=== PATIENT | female | born 1955 | race Caucasian/White ===

== ENCOUNTER → 2016-09-26 | Outpatient (CLI) | payer BC ==
[2016-09-26 14:30] VITALS: BP 164/91; PULSE 66; TEMP 98.6; BMI 32.2
--- NOTE | 2016-09-26 16:37 | P.HPBAR ---
Bariatric H&P - History & Physicial H&P Date: 09/26/16 History & Physicial: Visit/CC: Patient initial contact: Initial weight: Initial weight in pounds: Height: 5 ft 4.5 in Initial BMI: Last weight: Current weight: 86.455 kg Current weight in pounds: 190.60 Current BMI: 32.2 [place] body weight (based on NIH guidelines): 55.565 kg Excess body weight loss: The patient is a 61 year-old F who presents for Bariatric Assessment. The patient presents for lab band follow. She is requesting a fill of her LAP- BAND. She currently feels hungry. Past Medical History Past Medical History: GERD/Reflux, Hyperlipidemia, Hypertension, Thyroid Disorder History of Any Multi-Drug Resistant Organisms: None Reported Past Surgical History: Adenoidectomy, Appendectomy, Bariatric Surgery, Orthopedic Surgery, Tonsillectomy Additional Past Surgical History / Comment(s): lap band x2, appendectomy 2013; Right rotator cuff, bilateral thumbs, left ankle has 9 screws and a 6inch plate , left oopherectomy Past Anesthesia/Blood Transfusion Reactions: No Reported Reaction Past Psychological History: Anxiety, Depression Smoking Status: Former smoker Past Alcohol Use History: None Reported Additional Past Alcohol Use History / Comment(s): quit smoking in 1979 Past Drug Use History: None Reported - Past Family History Mother Family Medical History: Diabetes Mellitus Father Family Medical History: No Reported History Surgical - Exam Vital Signs Temp Pulse BP 98.6 F 66 164/91 09/26/16 14:20 09/26/16 14:20 09/26/16 14:20 - General well developed, no distress - Eyes PERRL - Abdomen Abdomen: soft, non tender Bariatric Assessment & Plan Plan: The patient LAP-BAND was adjusted. 0.5 mL was added to her LAP-BAND. She currently has 6.5 mL in the band. Patient will follow-up as needed. She states that she is attempting to find aftercare in the [place] area being that is closer to her home. Bariatric Checklist Checklist: Plan: Checklist: EGD: 1. Hiatal hernia: 2. H. Pylori: HgbA1c: Vitamin D: Smoking: Former smoker Primary care physician referral: Dr. Akanksha Gregory Psychiatry clearance: Cardiology clearance: Sleep study: Diet journal: VTE risk score: VTE risk level: Rehab needs at discharge:
== END | disposition home or self-care (01) ==
LOC: BARWHC3 13:13
PROVIDERS: ATTEND Surgery
DX: Z48.815 Encounter for surgical aftercare following surgery on the digestive system (principal); Z68.32 Body mass index [BMI] 32.0-32.9, adult; Z87.891 Personal history of nicotine dependence
CPT/HCPCS: 99212

== ENCOUNTER → 2022-08-08 | Outpatient (CLI) | payer MEDICARE ==
[2022-08-08 14:24] VITALS: BP 145/77; PULSE 69; TEMP 98.7; BMI 30.9
--- NOTE | 2022-08-08 14:39 | P.HPBAR ---
Bariatric H&P - History & Physicial H&P Date: 08/08/22 History & Physicial: Visit/CC: lap band Patient initial contact: Initial weight: Initial weight in pounds: Height: 5 ft 4.5 in Initial BMI: Last weight: Current weight: 83.007 kg Current weight in pounds: 183.00 Current BMI: 30.9 [place] body weight (based on NIH guidelines): 55.565 kg Excess body weight loss: The patient is a 67 year-old F who presents for Bariatric Assessment. She presents today for LAP-BAND follow-up. She's not been seen in over 6 years. Patient has a esophagram from an outside institution which shows significant dysphagia was retained food in the stomach esophagus. Patient has had trouble eating fill last several years. Past Medical History Past Medical History: GERD/Reflux, Hyperlipidemia, Hypertension, Thyroid Disorder History of Any Multi-Drug Resistant Organisms: None Reported Past Surgical History: Adenoidectomy, Appendectomy, Bariatric Surgery, Orthopedic Surgery, Tonsillectomy Additional Past Surgical History / Comment(s): lap band x2, appendectomy 2013; Right rotator cuff, bilateral thumbs, left ankle has 9 screws and a 6inch plate, left oopherectomy Past Anesthesia/Blood Transfusion Reactions: No Reported Reaction Past Psychological History: Anxiety, Depression Smoking Status: Former smoker Past Alcohol Use History: None Reported Additional Past Alcohol Use History / Comment(s): quit smoking in 1979 Past Drug Use History: None Reported - Past Family History Mother Family Medical History: Diabetes Mellitus Father Family Medical History: No Reported History Surgical - Exam Vital Signs Temp Pulse BP 98.7 F 69 145/77 08/08/22 14:18 08/08/22 14:18 08/08/22 14:18 - General well developed, well nourished, no distress - Eyes PERRL - ENT normal pinna, normal nares, normal mucosa - Neck no masses - Respiratory normal expansion - Cardiovascular Rhythm: regular - Abdomen Abdomen: soft, non tender Bariatric Assessment & Plan Plan: Patient's LAP-BAND was empty. 6.5 mL was removed the band. She was ill drink water without difficulty. Patient be scheduled for EGD prior to her LAP-BAND being refill. Bariatric Checklist Checklist: Plan: Checklist: EGD: 1. Hiatal hernia: 2. H. Pylori: HgbA1c: Vitamin D: Smoking: Former smoker Primary care physician referral: Dr. Akanksha Gregory Psychiatry clearance: Cardiology clearance: Sleep study: Diet journal: VTE risk score: VTE risk level: Rehab needs at discharge:
== END ==
LOC: BARWHC3 13:49
PROVIDERS: ATTEND Surgery
DX: Z48.815 Encounter for surgical aftercare following surgery on the digestive system (principal); Z98.84 Bariatric surgery status; K21.9 Gastro-esophageal reflux disease without esophagitis; E78.5 Hyperlipidemia, unspecified; I10 Essential (primary) hypertension; E07.9 Disorder of thyroid, unspecified; Z87.891 Personal history of nicotine dependence; Z79.890 Hormone replacement therapy; Z79.899 Other long term (current) drug therapy
CPT/HCPCS: 99212

== ENCOUNTER → 2022-09-01 | Day surgery (SDC) | payer MEDICARE ==
[2022-08-30 17:31] VITALS: BMI 31.6
[~2022-09-01] MED LIST: LACTATED RINGERS 1,000 ML IV ONE; LACTATED RINGERS 1,000 ML IV SCH; LIDOCAINE 1% (10MG/ML) FOR IV START INTRADERMA PRN; LIDOCAINE 2% INJ 20 MG/ML (2 ML VIAL) ONE; ONDANSETRON 4 MG/2 ML VIAL IVP PRN; PROPOFOL 10 MG/ML 20 ML VIAL IV ONE
[2022-09-01 09:43] VITALS: TEMP 97
--- NOTE | 2022-09-01 09:56 | P.GSHP ---
History of Present Illness H&P Date: 09/01/22 Chief Complaint: GERD Is a 67-year-old female who presents today for EGD. Patient history of GERD. Past Medical History Past Medical History: GERD/Reflux, Hyperlipidemia, Hypertension, Thyroid Disorder History of Any Multi-Drug Resistant Organisms: None Reported Past Surgical History: Adenoidectomy, Appendectomy, Bariatric Surgery, Orthopedic Surgery, Tonsillectomy Additional Past Surgical History / Comment(s): lap band x2, appendectomy 2013; Right rotator cuff, bilateral thumbs, left ankle has 9 screws and a 6inch plate, left oophorectomy Past Anesthesia/Blood Transfusion Reactions: No Reported Reaction Past Psychological History: Anxiety, Depression Smoking Status: Former smoker Past Alcohol Use History: None Reported Additional Past Alcohol Use History / Comment(s): quit smoking in 1979 Past Drug Use History: None Reported - Past Family History Mother Family Medical History: Diabetes Mellitus Father Family Medical History: No Reported History Medications and Allergies Home Medications Medication Instructions Recorded Confirmed Type Levothyroxine Sodium [Synthroid] 200 mcg PO DAILY 06/06/16 08/30/22 History Sertraline HCl [Zoloft] 200 mg PO DAILY 06/06/16 08/30/22 History Atorvastatin [Lipitor] 40 mg PO DAILY 08/08/22 08/30/22 History carvediloL [Coreg] 6.25 mg PO DAILY 08/08/22 08/30/22 History hydrOXYzine pamoate [hydrOXYzine 2 tab PO DAILY PRN 08/30/22 08/30/22 History PAMOATE] Allergies Allergy/AdvReac Type Severity Reaction Status Date / Time No Known Allergies Allergy Verified 08/30/22 17:20 Surgical - Exam Vital Signs Temp Pulse Resp BP Pulse Ox 97 F L 70 18 160/87 96 09/01/22 09:41 09/01/22 09:41 09/01/22 09:41 09/01/22 09:41 09/01/22 09:41 - General well developed, well nourished, no distress - Eyes PERRL - ENT normal pinna - Neck no masses - Respiratory normal expansion - Cardiovascular Rhythm: regular - Abdomen Abdomen: soft, non tender Assessment and Plan Assessment: GERD. We'll perform EGD.
--- NOTE | 2022-09-01 10:05 | P.OP ---
Date of Procedure: 09/01/22 Preoperative Diagnosis: GERD Indigestion Postoperative Diagnosis: Antral gastritis Procedure(s) Performed: EGD Anesthesia: MAC Surgeon: Jag Joshi Pathology: other (Antrum) Condition: stable Disposition: PACU Description of Procedure: Patient's placed on the endoscopy table in the lateral position. She received IV sedation. The gastro-/oropharynx passed in the esophagus and stomach. Scope placement pylorus. The first and second portion of the duodenum appeared normal. Scope was then brought back the antrum and this was mildly inflamed. A biopsies performed. Scope was then retroflexed and remainder of the stomach appeared normal. The patient a previous [employer] device. There was no sig nificant hiatal hernia seen. The GE junction was at 40 cm. The distal esophagus appeared normal. The proximal esophagus appeared normal. Scope withdrawn for patient.
[2022-09-01 10:28] VITALS: PULSE 68; RESP 14
[2022-09-01 10:36] VITALS: BP 151/89
--- NOTE | 2022-09-01 14:23 | NM ---
Nuclear medicine hepatobiliary scan. HISTORY: Pain. DOSAGE: The patient received 8 0z Ensure plus and 4.3 mCi of Technetium 99m Choletec. FINDINGS: There is normal hepatic extraction. The gallbladder is seen by 20 minutes. There is bilia ry to bowel clearance by 20 minutes. Ejection fraction is 80%. IMPRESSION: 1. No evidence of cholecystitis. 2. Ejection fraction of 88% which can occasionally be associated with hyperdynamic gallbladder correl ate clinically.
== END ==
LOC: ORWHC2ENDO 09:00
PROVIDERS: ATTEND Surgery
DX: K29.50 Unspecified chronic gastritis without bleeding (principal); K31.A19 Gastric intestinal metaplasia without dysplasia, unspecified site; E78.5 Hyperlipidemia, unspecified; E03.9 Hypothyroidism, unspecified; I10 Essential (primary) hypertension; K21.9 Gastro-esophageal reflux disease without esophagitis; F32.A Depression, unspecified; F41.9 Anxiety disorder, unspecified; Z87.891 Personal history of nicotine dependence; Z79.890 Hormone replacement therapy; Z79.899 Other long term (current) drug therapy; Z83.3 Family history of diabetes mellitus; Z90.49 Acquired absence of other specified parts of digestive tract; Z90.722 Acquired absence of ovaries, bilateral
CPT/HCPCS: 88305; 78227; 43239; J2704; J2001

== ENCOUNTER → 2022-12-05 | Outpatient (CLI) | payer MEDICARE ==
[2022-12-05 15:11] VITALS: PULSE 70; TEMP 98.2; BMI 35.4
[2022-12-05 15:13] VITALS: BP 177/102
--- NOTE | 2022-12-05 15:44 | P.HPBAR ---
Bariatric H&P - History & Physicial H&P Date: 12/05/22 History & Physicial: Visit/CC: lap band adj Patient initial contact: Initial weight: Initial weight in pounds: Height: 5 ft 4.5 in Initial BMI: Last weight: Current weight: 95.254 kg Current weight in pounds: 210.00 Current BMI: 35.4 [place] body weight (based on NIH guidelines): 55.565 kg Excess body weight loss: The patient is a 67 year-old F who presents for Bariatric Assessment. Patient presents today for LAP-BAND follow-up. She's requesting a fill of her LAP- BAND.. Past Medical History Past Medical History: GERD/Reflux, Hyperlipidemia, Hypertension, Thyroid Disorder History of Any Multi-Drug Resistant Organisms: None Reported Past Surgical History: Adenoidectomy, Appendectomy, Bariatric Surgery, Orthopedic Surgery, Tonsillectomy Additional Past Surgical History / Comment(s): lap band x2, appendectomy 2013; Right rotator cuff, bilateral thumbs, left ankle has 9 screws and a 6inch plate, left oophorectomy Past Anesthesia/Blood Transfusion Reactions: No Reported Reaction Past Psychological History: Anxiety, Depression Smoking Status: Former smoker Past Alcohol Use History: None Reported Additional Past Alcohol Use History / Comment(s): quit smoking in 1979 Past Drug Use History: None Reported - Past Family History Mother Family Medical History: Diabetes Mellitus Father Family Medical History: No Reported History Surgical - Exam Vital Signs Temp Pulse BP 98.2 F 70 177/102 12/05/22 15:08 12/05/22 15:08 12/05/22 15:08 - General well developed, well nourished, no distress - Eyes PERRL - ENT normal pinna - Neck no masses - Respiratory normal expansion - Cardiovascular Rhythm: regular - Abdomen Abdomen: soft, non tender Bariatric Assessment & Plan Plan: Patient LAP-BAND was just. She had 2 mL added to the band. She currently is 4.5 mL in the band. She'll follow-up in 4 weeks. Bariatric Checklist Checklist: Plan: Checklist: EGD: 1. Hiatal hernia: 2. H. Pylori: HgbA1c: Vitamin D: Smoking: Former smoker Primary care physician referral: Dr. Akanksha Gregory Psychiatry clearance: Cardiology clearance: Sleep study: Diet journal: VTE risk score: VTE risk level: Rehab needs at discharge:
== END ==
LOC: BARWHC3 14:49
PROVIDERS: ATTEND Surgery
DX: E66.01 Morbid (severe) obesity due to excess calories (principal); Z68.35 Body mass index [BMI] 35.0-35.9, adult; Z46.51 Encounter for fitting and adjustment of gastric lap band; K21.9 Gastro-esophageal reflux disease without esophagitis; E78.5 Hyperlipidemia, unspecified; I10 Essential (primary) hypertension; Z87.891 Personal history of nicotine dependence
CPT/HCPCS: 99212

== ENCOUNTER → 2023-01-30 | Outpatient (CLI) | payer MEDICARE ==
[2023-01-30 15:13] VITALS: BMI 36.6
--- NOTE | 2023-02-27 08:42 | P.HPBAR ---
Bariatric H&P - History & Physicial H&P Date: 01/30/23 History & Physicial: Visit/CC: lap band follow up Patient initial contact: Initial weight: Initial weight in pounds: Height: 5 ft 4.5 in Initial BMI: Last weight: Current weight: 98.384 kg Current weight in pounds: 216.90 Current BMI: 36.6 Alpha body weight (based on NIH guidelines): 55.565 kg Excess body weight loss: The patient is a 67 year-old F who presents for Bariatric Assessment. Patient presents today for LAP-BAND adjustment. She states she is hungry. She currently wish to have a fill of her LAP-BAND. Past Medical History Past Medical History: GERD/Reflux, Hyperlipidemia, Hypertension, Thyroid Disorder History of Any Multi-Drug Resistant Organisms: None Reported Past Surgical History: Adenoidectomy, Appendectomy, Bariatric Surgery, Orthopedic Surgery, Tonsillectomy Additional Past Surgical History / Comment(s): lap band x2, appendectomy 2013; Right rotator cuff, bilateral thumbs, left ankle has 9 screws and a 6inch plate, left oophorectomy Past Anesthesia/Blood Transfusion Reactions: No Reported Reaction Smoking Status: Former smoker - Past Family History Mother Family Medical History: Diabetes Mellitus Father Family Medical History: No Reported History Surgical - Exam - General well developed, well nourished - Abdomen Abdomen: soft, non tender Bariatric Assessment & Plan Plan: Patient's LAP-BAND was adjusted. She had 1 mL added to the band. She currently has 5.5 mL in the band. She'll follow-up in 4 weeks. Bariatric Checklist Checklist: Plan: Checklist: EGD: 1. Hiatal hernia: 2. H. Pylori: HgbA1c: Vitamin D: Smoking: Former smoker Primary care physician referral: Dr. Akanksha Gregory Psychiatry clearance: Cardiology clearance: Sleep study: Diet journal: VTE risk score: VTE risk level: Rehab needs at discharge:
== END ==
LOC: BARWHC3 14:06
PROVIDERS: ATTEND Surgery
DX: E66.01 Morbid (severe) obesity due to excess calories (principal); K21.9 Gastro-esophageal reflux disease without esophagitis; E78.5 Hyperlipidemia, unspecified; I10 Essential (primary) hypertension; E07.9 Disorder of thyroid, unspecified; Z68.36 Body mass index [BMI] 36.0-36.9, adult; Z46.51 Encounter for fitting and adjustment of gastric lap band; Z98.84 Bariatric surgery status; Z79.890 Hormone replacement therapy; Z87.891 Personal history of nicotine dependence
CPT/HCPCS: 99212

== ENCOUNTER → 2023-07-24 | Outpatient (CLI) | payer MEDICARE ==
[2023-07-24 14:47] VITALS: BP 154/105; PULSE 86; TEMP 98; BMI 36.5
--- NOTE | 2023-10-10 11:41 | P.HPBAR ---
Bariatric H&P - History & Physicial H&P Date: 07/24/23 History & Physicial: Visit/CC: lap band f/u Patient initial contact: Initial weight: Initial weight in pounds: Height: 5 ft 4.5 in Initial BMI: Last weight: Current weight: 97.976 kg Current weight in pounds: 216.00 Current BMI: 36.5 [place] body weight (based on NIH guidelines): 55.565 kg Excess body weight loss: The patient is a 68 year-old F who presents for Bariatric Assessment. Patient presents today for Lap-Band adjustment. She is currently hungry and is requesting a fill of her band. She is lost 0.9 pounds her last fill. Past Medical History Past Medical History: GERD/Reflux, Hyperlipidemia, Hypertension, Thyroid Disorder History of Any Multi-Drug Resistant Organisms: None Reported Past Surgical History: Adenoidectomy, Appendectomy, Bariatric Surgery, Orthopedic Surgery, Tonsillectomy Additional Past Surgical History / Comment(s): lap band x2, appendectomy 2013; Right rotator cuff, bilateral thumbs, left ankle has 9 screws and a 6inch plate, left oophorectomy Past Anesthesia/Blood Transfusion Reactions: No Reported Reaction Past Psychological History: Anxiety, Depression Smoking Status: Former smoker Past Alcohol Use History: None Reported Additional Past Alcohol Use History / Comment(s): quit smoking in 1979 Past Drug Use History: None Reported - Past Family History Mother Family Medical History: Diabetes Mellitus Father Family Medical History: No Reported History Surgical - Exam Vital Signs Temp Pulse BP 98.0 F 86 154/105 07/24/23 12:20 07/24/23 12:20 07/24/23 12:20 - General well developed - Eyes PERRL - ENT normal pinna - Neck no masses - Respiratory normal expansion - Abdomen Abdomen: soft, non tender Bariatric Assessment & Plan Plan: Patient is Lapides adjusted. She had 0.5 cc in the band particularly 60 to the pain. She will follow-up in 4 weeks. Bariatric Checklist Checklist: Plan: Checklist: EGD: 1. Hiatal hernia: 2. H. Pylori: HgbA1c: Vitamin D: Smoking: Former smoker Primary care physician referral: Dr. Akanksha Gregory Psychiatry clearance: Cardiology clearance: Sleep study: Diet journal: VTE risk score: VTE risk level: Rehab needs at discharge:
== END ==
LOC: BARWHC3 11:42
PROVIDERS: ATTEND Surgery
DX: Z53.9 Procedure and treatment not carried out, unspecified reason (principal)
CPT/HCPCS: 43999